=== PATIENT | male | born 1945 | race Native Hawaiian/Other Pacific Islander ===

== ENCOUNTER 2020-10-31 11:47 | Emergency (ER) | payer OTHER ==
[2020-11-11 05:55] LABS: PLATELET COUNT 153 K/uL (142-355)
[2020-11-11 05:56] LABS: PARTIAL THROMBOPLASTIN TIME 27.2 SECONDS (24.5-33.6)
[2020-11-11 05:58] LABS: POTASSIUM 4.4 mmol/L (3.6-5.2)
== END 2020-10-31 14:30 | disposition other institution (70) ==
LOC: ED 11:47
PROVIDERS: Emergency Medicine
DX: E87.5 Hyperkalemia (principal); Z11.52 Encounter for screening for COVID-19; Z04.6 Encounter for general psychiatric examination, requested by authority
CPT/HCPCS: 36415; 80053; 81000; 85027; 85610; 85730; 87635; 93005; 99283; U0003

== ENCOUNTER 2020-11-11 18:08 | Emergency (ER) | payer OTHER ==
[~2020-11-11] VITALS: Ht 152.4 cm; Wt 65.8 kg
[2020-11-11 18:30] LABS: PLATELET COUNT 193 K/uL (142-355)
[2020-11-11 18:56] LABS: POTASSIUM 4.3 mmol/L (3.6-5.2); SODIUM 134 mmol/L (136-145)
[2020-11-11 20:50] VITALS: BP 138/74; TEMP 97.8
== END 2020-11-11 20:50 ==
LOC: ED 18:08
PROVIDERS: Emergency Medicine
DX: R06.81 Apnea, not elsewhere classified (principal); F20.89 Other schizophrenia
CPT/HCPCS: 36415; 80053; 82550; 83880; 84484; 85027; 85379; 85610; 85730; 93005; 99284

== ENCOUNTER 2020-11-26 20:55 | Emergency (ER) | payer OTHER ==
[~2020-11-26] VITALS: Ht 152.4 cm; Wt 59.9 kg
[2020-11-26 23:10] VITALS: BP 120/64; TEMP 97.4
== END 2020-11-26 23:10 | disposition other institution (70) ==
LOC: ED 20:55
DX: S00.12XA Contusion of left eyelid and periocular area, initial encounter (principal); S00.212A Abrasion of left eyelid and periocular area, initial encounter; I67.89 Other cerebrovascular disease; W19.XXXA Unspecified fall, initial encounter; Y92.238 Other place in hospital as the place of occurrence of the external cause
CPT/HCPCS: 99283